=== PATIENT | female | born 1980 | race Caucasian/White ===

== ENCOUNTER 2018-10-13 09:00 | Day surgery (SDC) | payer MEDICAID ==
[2018-10-10 09:43] LABS: BASOPHILS 0.2 % (0-2); EOSINOPHILS 2.4 % (0-7); HEMATOCRIT 40.6 % (36.0-48.0); HEMOGLOBIN 13.9 g/dL (12-16); IMMATURE GRANULOCYTES 0.2 % (0-5); LYMPHOCYTES 30.9 % (15-50); MCH 32.3 pg (26.0-34.0); MCHC 34.2 g/dL (31.0-37.0); MCV 94.4 fL (80.0-100.0); MEAN PLATELET VOLUME 10.9 fL (7.4-10.4); MONOCYTES 8.6 % (2-11); NEUTROPHILS 57.7 % (40-80); PLATELET COUNT 159 10x3/uL (130-400); RDW 12.7 % (11.5-14.5); WBC 4.2 10x3/uL (4.8-10.8)
[2018-10-10 09:47] LABS: CALC OSMOLALITY 283 mosm/kg (275-300); CALCIUM 8.3 mg/dL (8.5-10.1); CARBON DIOXIDE 27.6 mmol/L (21.0-32.0); CHLORIDE - SERUM 105 mmol/L (98-107); CREATININE - SERUM 0.8 mg/dL (0.6-1.3); GLUCOSE 78 mg/dL (74-106); POTASSIUM - SERUM 3.9 mmol/L (3.5-5.1); SODIUM 142 mmol/L (136-145); UREA NITROGEN 17 mg/dL (7-18); eGFR NON AFRICAN AMERICAN 85 mL/min (90-120)
[~2018-10-13] VITALS: Ht 157.5 cm; Wt 50.0 kg
[2018-10-13 09:22] VITALS: BP 142/76; BMI 20.1
[2018-10-13 09:32] LABS: HCG URINE NEGATIVE (NEGATIVE)
[2018-10-13 10:20] LABS: HCG URINE NEGATIVE (NEGATIVE)
--- NOTE | 2018-10-13 17:30 | NUR ---
AWAITING ROOM NUMBER TO BE ABLE TO TRANSFER PATIENT TO BED FOR OVERNIGHT OBSERVATION. PATIENT ALERT AND ORIENTED. DR. CARDENAS TALKED WITH PATIENT. DR. CARDENAS OK'D PATIENT'S MENDOZA CATHETER TO BE DC'D. MENDOZA DC'D PER PROTOCOL WITH 75 ML CLEAR YELLOW URINE IN BAG. PATIENT TOLERATED WELL. VITAL SIGNS STABLE.
--- NOTE | 2018-10-13 20:00 | NUR ---
RECEIVED PT VIA STRETCHER FROM POST LAP HYST PER DR CARDENAS, PT TRANSFERRED SELF TO BED WITH NO DIFFICULTY, IV IN LEFT FA INTACT WITH NO REDNESS OR EDEMA INFUSING VIA PUMP LR AT 125 ML/HR, INFORMED PT THAT I WILL BE BACK IN A FEW MINUTES TO DO ASSESSMENT, PT VERBALIZES UNDERSTANDING, PT ORIENTED TO ROOM, BED IN LOW POSITION, SIDE RAILS X 2, CALL LIGHT IN REACH
--- NOTE | 2018-10-13 20:08 | NUR ---
SCD'S CONNECTED TO PUMP AND WORKING PROPERLY
[2018-10-13 20:20] VITALS: BP 109/55; Ht 157.5 cm; Wt 50.0 kg
--- NOTE | 2018-10-13 20:28 | NUR ---
ADMISSION ASSESSMENT FLOWSHEET COMPLETED BY LÁZARO LEWIS. BBS CLEAR WITH RESP EVEN/UNLABORED. LOW LAP INCISION X2 AND UMBILICAL LAB INCISION CLEAN, DRY, AND INTACT WITH DERMABOND. DENIES PAIN AT THIS TIME. SCD PATENT AND MACHINE ON AND PUMPING. IV TO LEFT FOREARM PATENT WITH LR AT 125 ML/HR INFUSING. PLAN OF CARE DISCUSSED. PT STATES UNDERSTANDING.
--- NOTE | 2018-10-13 21:00 | NUR ---
UP TO BR TO VOID 100 ML CLEAR BOLIVAR URINE WITHOUT DIFFICULTY.
--- NOTE | 2018-10-13 23:49 | NUR ---
PT ASLEEP WITH HOB UP APPROXIMATELY 30 DEGREES. EASILY AROUSES. RESP EASY AND SKIN PINK. SIGNIFICANT OTHER ASLEEP IN CHAIR. DENIES NEEDS AT THIS TIME.
[2018-10-14] VITALS: BP 97/50
--- NOTE | 2018-10-14 00:12 | NUR ---
UP TO BR WITH ASSIST. VOIDED 100 ML CLEAR BOLIVAR URINE. ASSISTED BACK TO BED. PT WITH STEADY GAIT. SCD PLACED BACK ON LEGS SARA AND MACHINE TURNED ON. DEEP BREATHING AND COUGHING ENCOURAGED AND DONE BY PT.
--- NOTE | 2018-10-14 00:22 | OP ---
PATIENT NAME: IWLLIAM TELLO MEDICAL RECORD: [id number] :78 LOCATION:[id number] ADMISSION DATE: SURGEON: LATANYA CARDENAS MD DATE OF OPERATION: 10/13/2018 PREOPERATIVE DIAGNOSES: 1. Dysfunctional uterine bleeding. 2. Dysmenorrhea. POSTOPERATIVE DIAGNOSES: 1. Dysfunctional uterine bleeding. 2. Dysmenorrhea. 3. Suspect adenomyosis. PROCEDURES: 1. Diagnostic laparoscopy. 2. Laparoscopic subtotal hysterectomy with bilateral salpingectomy. SURGEON: Latanya Cardenas MD CODE MACHINE OPERATOR: Dr. Scanlon. ANESTHESIOLOGIST: Dr. Jeffry Chambers. ANESTHESIA: General anesthetic with endotracheal intubation. FINDINGS: Uterus is enlarged. The uterus also noted to be boggy. Both tubes were interrupted bilaterally. Filshie clips were found in the pelvis. What was visualized of the abdominal anatomy was unremarkable. SPECIMEN REMOVED: 1. 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 2. Bilateral tubes. SPECIMEN DISPOSITION: Pathology. ESTIMATED BLOOD LOSS: Minimal. FLUIDS: 1500 cc of lactated Ringer's. URINE OUTPUT: 40 of clear urine. COMPLICATIONS: None. DRAIN: Roland to gravity discontinued in the PACU. INDICATIONS: The patient is a 37-year-old female with painful heavy periods. The patient has attempted conservative management without results. The patient desires definitive therapy. Risks and benefits of laparoscopic subtotal hysterectomy have been discussed with the patient in length. The patient wishes to proceed. DESCRIPTION OF PROCEDURE: After informed consent was assured, the patient was taken to the operating room where anesthesia was obtained without difficulty. The patient is now prepped and draped in the usual sterile fashion. An incision OPERATIVE REPORT [id number] WILLIAM TELLO was made in the umbilicus to accommodate a 5-mm trocar, which was inserted without difficulty. Pneumoperitoneum was developed and the patient was now placed in Trendelenburg position. Accessory ports are now placed in the right and left lower quadrants. Right lower quadrant port, a 12-mm port. The left lower quadrant port is a 5-mm port. Through the 5-mm port, a grasper was inserted. The right tube elevated and it is now removed from its attachments to the adnexa with a coagulation cutter. After removal of the tube, the uterine ovarian ligaments and round ligaments are compressed, coagulated, and . The dissection was carried down in the anterior leaf of the broad ligament. The bladder flaps developed to the midline. Posteriorly, the connective tissue was taken down. The vessels of the right side skeletonized. At the level of the internal os, the vessels were compressed, coagulated, and . Two Filshie clips were encountered at the cul-de-sac and these were removed easily through the 12-mm scope. Attention was now directed to the left side of the patient. Through the right port, a grasper was used to elevate the left tube. Using a coagulation cutter from the left lower quadrant port site, the attachment of the tubes to the adnexa were compressed, coagulated, and . Tube was removed from the port. The remaining attachments of the ovary to the uterus and the round ligaments were compressed, coagulated, and . Dissection was carried again down to the level of the bladder flap which is now fully developed. Posteriorly, the vessels are skeletonized and compressed, coagulated, and to the level of the internal os. Using Harmonic scalpel, the uterus was now removed from its attachments to the cervix. After this has been completed, the endocervical canal was cauterized. A PlasmaSORD morcellator is now introduced to the pelvis and the uterus was removed in several portions. After removal of the uterus, the PlasmaSORD was removed and the 12-mm port replaces this. The pelvis was irrigated, irrigant removed. Small portions of uterus were identified in the cul-de-sac and removed. Two more Filshie clips were encountered in the cul-de-sac and these are removed from the 12-mm port. Interceed was placed over the cervical stump and the pneumoperitoneum was released as the accessory trocars were being removed. The primary trocar was now removed and all sites reapproximated with a subcuticular stitch and Dermabond. TRANSINT:[id number] Voice Confirmation ID: [id number] DOCUMENT ID: [id number] LATANYA CARDENAS MD at 0022 CC: [id number] DICTATION DATE: 10/13/18 1458 TREE TRIMMER HELPER: 10/13/18 1755 [facility] [address] [place] [address]
--- NOTE | 2018-10-14 02:27 | NUR ---
SLEEPING AT THIS TIME. EASILY AROUSE. TURN, COUGH, AND DEEP BREATHING DONE. 30 MG TORADOL IVP GIVEN. PAIN TO ABDOMEN AND RIGHT SHOULDER A 3-4 ON PAIN SCALE. DENIES NEEDS AT THIS TIME. SCD'S ON LEGS SARA.
[2018-10-14 04:00] VITALS: BP 96/48
--- NOTE | 2018-10-14 04:14 | NUR ---
UP TO BR WITH MINIMAL ASSIST. VOIDED 200 ML CLEAR BOLIVAR URINE. RESP EASY. STEADY GAIT NOTED. ENCOURAGED DEEP BREATHING AND COUGHING. PT STATES UNDERSTANDING AND DEEP BREATHING AND COUGHING DONE. IV PATENT. DENIES NEEDS AT THIS TIME.
--- NOTE | 2018-10-14 05:00 | NUR ---
DR. CARDENAS HERE FOR ASSESSMENT.
[2018-10-14 07:24] LABS: BASOPHILS 0.1 % (0-2); EOSINOPHILS 0 % (0-7); HEMATOCRIT 33.7 % (36.0-48.0); HEMOGLOBIN 11.6 g/dL (12-16); IMMATURE GRANULOCYTES 0.1 % (0-5); LYMPHOCYTES 11.4 % (15-50); MCH 31.8 pg (26.0-34.0); MCHC 34.4 g/dL (31.0-37.0); MCV 92.3 fL (80.0-100.0); MEAN PLATELET VOLUME 11.1 fL (7.4-10.4); MONOCYTES 7.5 % (2-11); NEUTROPHILS 80.9 % (40-80); PLATELET COUNT 147 10x3/uL (130-400); RBC 3.65 10x6/uL (4.00-5.40); RDW 12.2 % (11.5-14.5); WBC 8.5 10x3/uL (4.8-10.8)
--- NOTE | 2018-10-14 08:36 | NUR ---
RESTING WO DISTRESS. RESP EVEN AND UNLABORED. CL IN REACH.
--- NOTE | 2018-10-14 10:28 | NUR ---
DC INSTRUCTIONS GIVEN TO PATIENT AND FAMILY. NO HEAVY LIFTIN OVER 5 LBS. KEEP ABD INCISIONS CLEAN AND DRY. ME APPT IS MADE. PRESCRIPTIONS FOR PERCOCET, NEUROTIN, AND MOBIC SENT WITH PATIENT. VERBALIZES UNDERSTANDING DC INSTRUCTIONS. ASSISTED TO CAR IN FOR DC HOME.
== END 2018-10-14 10:28 | disposition home or self-care (01) ==
LOC: D.OPS 09:00 → D.PAN 09:45 → D.OPS 09:50 → D.WS 19:34 → D.OPS 10-14 10:28
PROVIDERS: Obstetrics & Gynecology
DX: N93.8 Other specified abnormal uterine and vaginal bleeding (principal); N94.6 Dysmenorrhea, unspecified; Z01.812 Encounter for preprocedural laboratory examination